=== PATIENT | male | born 1985 | race Caucasian/White ===

== ENCOUNTER → 2024-09-19 12:44 | Outpatient (BNVA) | payer MEDICAID, SELFPAY | PROVIDERS: Visit Provider Internal Medicine | DX: R07.9 Chest pain, unspecified (principal) | CPT/HCPCS: 93005; 99204 ==

== ENCOUNTER → 2024-09-23 11:33 | Outpatient (BNVA) | payer MEDICAID, SELFPAY | PROVIDERS: Visit Provider Internal Medicine | DX: Z45.018 Encounter for adjustment and management of other part of cardiac pacemaker (principal) | CPT/HCPCS: 93280 ==

== ENCOUNTER 2024-12-17 13:24 | Emergency (ER) | payer MEDICAID, SELFPAY ==
--- NOTE | 2024-12-17 13:28 | XRR_ITS ---
PROCEDURE INFORMATION: Exam: XR Left Wrist Exam date and time: 12/17/2024 1:39 PM Age: 38 years old Clinical indication: Pain; Wrist; Left TECHNIQUE: Imaging protocol: Radiologic exam of the left wrist. Views: 3 or more views. COMPARISON: No relevant prior studies available. FINDINGS: Bones/joints: Normal. Soft tissues: Normal. XR/XR wrist LT min 3V* [id number] IMPRESSION: No acute findings.
--- NOTE | 2024-12-17 13:28 | XRR_ITS ---
PROCEDURE INFORMATION: Exam: XR Right Wrist Exam date and time: 12/17/2024 1:37 PM Age: 38 years old Clinical indication: Pain; Wrist; Right TECHNIQUE: Imaging protocol: Radiologic exam of the right wrist. Views: 3 or more views. COMPARISON: No relevant prior studies available. FINDINGS: Bones/joints: Normal. Soft tissues: Normal. XR/XR wrist RT min 3V* [id number] IMPRESSION: No acute findings.
--- NOTE | 2024-12-17 13:30 | W.ED.GENADLT ---
HPI - General Adult General: Chief complaint: Extremity Injury, Upper Stated complaint: kenzie wrist pain Time Seen by Provider: 12/17/24 13:28 History of Present Illness: 38-year-old male presents to the emergency room in the custody of [facility] after suicide attempt using a razor to cut to his wrist bilaterally as of full-thickness cut of approximately 4 cm on the left wrist superficial cuts on the right he is unsure of his last tetanus no significant bleeding. Related Data Home Medications ?Medication ?Instructions ?Recorded ?Confirmed Multivitamin PO 09/19/24 09/19/24 acetaminophen 325 mg tablet 325 mg PO QID PRN 09/19/24 09/19/24 (Tylenol) cetirizine 10 mg tablet 10 mg PO DAILY PRN 09/19/24 09/19/24 cholecalciferol (vitamin D3) 1,250 PO 09/19/24 09/19/24 mcg (50,000 unit) capsule empagliflozin 10 mg tablet 10 mg PO QAM 09/19/24 09/19/24 (Jardiance) fluticasone propionate 50 2 spray intranasal DAILY 09/19/24 09/19/24 mcg/actuation nasal spray,suspension (Flonase Allergy Relief) Previous Rx's ?Medication ?Instructions ?Recorded furosemide 40 mg tablet (Lasix) 40 mg PO DAILY #90 tabs 12/12/24 metoprolol succinate 50 mg 50 mg PO BID #90 tabs 12/12/24 tablet,extended release 24 hr sacubitril 49 mg-valsartan 51 mg 1 tab PO BID #60 tabs 12/12/24 tablet (Entresto) spironolactone 25 mg tablet 25 mg PO DAILY #90 tabs 12/12/24 mupirocin 2 % topical ointment 1 applic topical DAILY #15 grams 12/17/24 (Centany) Allergies Allergy/AdvReac Type Severity Reaction Status Date / Time mushrooms Allergy Severe ALGY-Swell Uncoded 09/19/24 13:05 Lip/Tongue/Throat shell fish Allergy Severe ALGY-Swell Uncoded 09/19/24 13:05 Lip/Tongue/Throat PFSH ED PFSH: Medical History CHF (congestive heart failure) Social History Smoking and tobacco/nicotine status: never used tobacco/nicotine Physical Exam Extremity: OTHER: Multiple superficial cuts on both wrist volar surface there is one 4 cm full-thickness laceration on the volar surface of the left wrist. Normal function no evidence of tendon involvement. No active bleeding Procedures Laceration Laceration 1: Site: upper extremity (Left wrist laceration 4 cm) Side (If applicable): left Size (cm): 4 Description: linear Depth: simple, single layer Local Anesthetic: lidocaine 1% Amount of anesthesia used (mL): 3 Pre-repair: wound explored, irrigated extensively and deep structures intact Skin layer closed with: nylon Size (cm): 5-0 Number of sutures: 1 Technique: running Course Vital Signs: Vital signs: Vital Signs Temperature 98.1 F 12/17/24 13:38 Pulse Rate 84 12/17/24 14:18 Respiratory Rate 16 12/17/24 14:18 Blood Pressure 112/65 12/17/24 14:18 Pulse Oximetry 95 12/17/24 14:18 Oxygen Delivery Me thod Room Air 12/17/24 13:38 MDM - General Adult Medical Decision Making Discussed with the deputy will discharge patient back to the residential he will be under suicide watch there. Apply topical antibiotic ointment to the wounds once daily. Sutures to be removed in 7 to 10 days. Patient's tetanus was updated. XR interpretation done by ED provider, pending radiology final review ED provider radiology interpretation(s): Plain films of the wrist no acute fractures no evidence of foreign body under the skin Discharge Plan Discharge Patient Disposition: Home Clinical Impression: Laceration of left wrist, Suicide attempt Condition: Stable Prescriptions: New mupirocin [Centany] 2 % ointment 1 applic topical DAILY Qty: 15 0RF No Action Jardiance 10 mg tablet 10 mg PO QAM fluticasone propionate [Flonase Allergy Relief] 50 mcg/actuation spray,suspension 2 spray intranasal DAILY Rx Instructions: administer into each nostril cetirizine 10 mg tablet 10 mg PO DAILY PRN cholecalciferol (vitamin D3) 1,250 mcg (50,000 unit) capsule PO Multivitamin PO acetaminophen [Tylenol] 325 mg tablet 325 mg PO QID PRN furosemide [Lasix] 40 mg tablet 40 mg PO DAILY Qty: 90 3RF metoprolol succinate 50 mg tablet extended release 24 hr 50 mg PO BID Qty: 90 3RF Entresto 49-51 mg tablet 1 tab PO BID Qty: 60 3RF spironolactone 25 mg tablet 25 mg PO DAILY Qty: 90 3RF Discharge Orders: Discharge ED (Routine); Ordered 12/17/24 Ordered By: Duncan Sarah Discharge Diet: Usual diet Discharge Activity: Resume usual activity Patient Instructions: Opioid Safety, Pain Management Activity Restrictions/Additional Instructions: Thank you for choosing [facility] for your healthcare needs today. It is very important that you follow up as instructed or that you return to the Emergency Department should you have concerns or if your condition changes or worsens in any way. You were seen in the emergency room. You had a cut to your wrist. The right wrist did not require any suturing you should dress the wounds with antibiotic ointment at least once a day. The left wrist did require some suturing sutures should be removed in approximately 7 days apply topical antibiotic ointment to the wound once a day. Recommend that you be under suicide watch while at the [facility]. Print Language: Greek Coding Level of Care Code ED Nephrologist for Aubree Bradford
[2024-12-17 13:38] VITALS: BP 114/72; PULSE 80; RESP 18; TEMP 36.7; O2SAT 95; BMI 39.4
[2024-12-17] MEDS: bacitracin ointment Pkt 1 EACH TOPICAL (14:13)
[2024-12-17] MEDS: tetanus-dipt-pertussis 0.5 mL SDV IM (14:13)
[2024-12-17 14:18] VITALS: BP 112/65; PULSE 84; RESP 16; O2SAT 95
== END 2024-12-17 14:19 | disposition home or self-care (01) ==
PROVIDERS: Emergency Provider Family Medicine
DX: S61.512A Laceration without foreign body of left wrist, initial encounter (principal); R45.851 Suicidal ideations; W26.0XXA Contact with knife, initial encounter; I50.9 Heart failure, unspecified; Z23 Encounter for immunization
CPT/HCPCS: 12002; 73110; 90471; 90715; 99283; 99291; J9999

== ENCOUNTER → 2024-12-20 11:31 | Outpatient (BNVA) | payer MEDICAID, SELFPAY | PROVIDERS: PCP Family Medicine; Visit Provider Nurse Practitioner Family | DX: I50.9 Heart failure, unspecified (principal); I42.8 Other cardiomyopathies | CPT/HCPCS: 99214 ==